=== PATIENT | male | born 1990 ===

== ENCOUNTER 2020-12-04 11:34 | Emergency (ER) | payer BC, OTHER ==
--- NOTE | 2020-12-04 11:43 | EDM.PDOC ---
ED HPI GENERAL MEDICAL PROBLEM - General Chief Complaint: ENT Problem Stated Complaint: [id number] BAD COLD Time Seen by Provider: 12/04/20 11:43 Source of Information: Reports: Patient, Family, RN, RN Notes Reviewed History Limitations: Reports: No Limitations - History of Present Illness INITIAL COMMENTS - FREE TEXT/NARRATIVE: Patient presents to ER accompanied by spouse with complaints of fever, sore throat, productive cough, muscle aches, congestion, runny nose. Muscle aches starting Thursday and other symptoms coming by Thursday. Patient denies known sick contacts and is fully vaccinated with, what he believes to be, Pfizer vaccine since June 2020. Pt denies nausea, vomiting, diarrhea, rash, chest pain, or shortness of breath. Onset: Sudden Onset Date: 12/01/20 Duration: Constant, Getting Worse Location: Reports: Generalized Quality: Reports: Ache Severity: Severe Improves with: Reports: None Worsens with: Reports: None Associated Symptoms: Reports: No Other Symptoms Treatments [employer]: Reports: Acetaminophen Generalized Pain Score (Numeric/FACES): 3 - Related Data Allergies Allergy/AdvReac Type Severity Reaction Status Date / Time No Known Allergies Allergy Verified 12/04/20 11:43 Home Meds: Home Meds . [No Known Home Meds] 12/04/20 [History] Past Medical History - Past Health History Medical/Surgical History: Denies Medical/Surgical History Social & Family History - Family History Family Medical History: No Pertinent Family History - Living Situation & Occupation Living situation: Reports: , with Spouse Occupation: Employed ED ROS GENERAL - Review of Systems Review Of Systems: Comprehensive ROS is negative, except as noted in HPI. ED EXAM, GENERAL - Physical Exam Exam: See Below Exam Limited By: No Limitations General Appearance: Alert, WD/WN, No Apparent Distress, Other (Acutely ill but non-toxic appearing) Eye Exam: Bilateral Eye: Normal Inspection Ears: Normal External Exam, Hearing Grossly Normal Nose: No Blood, Nasal Drainage (Clear, mild) Throat/Mouth: Normal Lips, Normal Teeth, Normal Gums, Normal Voice, No Airway Compromise, Other (red spots of erythema on soft pallet, uvula, and oropharnyx, no exudates, no swelling, some clear postnasal drip) Head: Atraumatic, Normocephalic Neck: Normal Inspection, Supple, Non-Tender, Full Range of Motion, Other (No nuchal rigidity). No: Lymphadenopathy (L), Lymphadenopathy (R) Respiratory/Chest: No Respiratory Distress, Lungs Clear, Normal Breath Sounds, No Accessory Muscle Use, Chest Non-Tender Cardiovascular: Regular Rate, Rhythm, No Murmur, Tachycardia GI/Abdominal: Normal Bowel Sounds, Soft, Non-Tender Back Exam: Normal Inspection Extremities: Normal Inspection, Non-Tender, Normal Capillary Refill. No: Joint Swelling Neurological: Alert, Oriented, CN II-XII Intact, Normal Cognition, Normal Gait, No Motor/Sensory Deficits Psychiatric: Normal Affect, Normal Mood Skin Exam: Warm, Intact, Normal Color, No Rash, Diaphoretic. No: Ecchymosis, Jaundice, Petechiae Course - Vital Signs Last Recorded V/S: Last Vital Signs Temp 96.6 F L 12/04/20 11:43 Pulse 121 H 12/04/20 11:43 Resp 16 12/04/20 11:43 BP 115/85 12/04/20 11:43 Pulse Ox 97 12/04/20 11:43 - Orders/Labs/Meds Orders: Active Orders 24 hr Category Date Time Status CULTURE STREP A CONFIRMATION [] Stat Lab 12/04/20 11:43 Results STREP SCRN A RAPID W CULT CONF [] Stat Lab 12/04/20 11:43 Results Labs: Laboratory Tests 12/04/20 12/04/20 12/04/20 Range/Units 11:43 13:44 13:44 WBC 5.1 (5.0-10.0) 10^3/uL RBC 5.15 (4.6-6.2) 10^6/uL Hgb 16.3 (14.0-18.0) g/dL Hct 47.6 (40.0-54.0) % MCV 92.4 (80-100) fL MCH 31.7 (27.0-34.0) pg MCHC 34.2 (33.0-35.0) g/dL Plt Count 202 (150-450) 10^3/uL Neut % (Auto) 74.1 (42.2-75.2) % Lymph % (Auto) 13.9 L (20.5-50.1) % Evans % (Auto) 11.4 H (2-8) % Eos % (Auto) 0.2 L (1.0-3.0) % Baso % (Auto) 0.4 (0.0-1.0) % C-Reactive Protein 2.6 H (0.0-0.9) mg/dL Influenza Type A RNA Negative (NEGATIVE) Influenza Type B RNA Negative (NEGATIVE) SARS-CoV-2 RNA (OTILIA) Negative (NEGATIVE) Rapid Strep: negative - Radiology Interpretation Free Text/Narrative:: XR Chest: no acute process per Rad. report. Departure - Departure Time of Disposition: 14:14 Disposition: Home, Self-Care 01 Condition: Good Clinical Impression: Viral URI with cough, Acute viral pharyngitis - Discharge Information *PRESCRIPTION DRUG MONITORING PROGRAM REVIEWED*: Not Applicable *COPY OF PRESCRIPTION DRUG MONITORING REPORT IN PATIENT DANAE: Not Applicable Instructions: Viral Illness, Adult Forms: ED Department Discharge Additional Instructions: Rx: Promethazine Codeine Syrup *Do not drive while under the influence of this medication. Rx: Prednisone 20mg Drink plenty of water, Pedialyte, or Gatorade. Use Tylenol and Ibuprofen as needed for fevers. Follow up in clinic if not improving as expected. Consider obtaining a second COVID test if you continue to have fevers in the next few days. Sepsis Event Note (ED) - Focused Exam Vital Signs: Vital Signs Temp Pulse Resp BP Pulse Ox 12/04/20 11:43 96.6 F L 121 H 16 115/85 97 - My Orders Last 24 Hours: My Active Orders 12/04/20 11:43 CULTURE STREP A CONFIRMATION [RM] Stat STREP SCRN A RAPID W CULT CONF [] Stat - Assessment/Plan Last 24 Hours: My Active Orders 12/04/20 11:43 CULTURE STREP A CONFIRMATION [RM] Stat STREP SCRN A RAPID W CULT CONF [] Stat
[2020-12-04 12:33] LABS: CORONAVIRUS COVID-19 NAA NEGATIVE (NEGATIVE)
--- NOTE | 2020-12-04 14:06 | CR ---
EXAMINATION: Chest 2V SEX: Male AGE: 30 years CLINICAL HISTORY: 30-year-old male with "productive cough" clinically. (Negative COVID test) INTERPRETATION: Negative exam. 1. Normal cardiac silhouette (cardiac size and configuration). Left-sided aortic arch. 2. No pulmonary vascular congestion, cephalization of flow, alveolar edema or dependent pleural fluid accumulation. 3. No suspicious lung nodule or mass lesion. No hilar or mediastinal lymphadenopathy. 4. No atelectasis/collapse. No alveolar infiltrate, air bronchograms, or peripheral "groundglass" interstitial lung densities. 5. No pneumothorax or pneumomediastinum. Normal midline tracheal bronchial airway. No free subdiaphragmatic air.
== END 2020-12-04 14:20 | disposition home or self-care (01) ==
LOC: DL.ED 11:34
DX: J02.8 Acute pharyngitis due to other specified organisms (principal); Z20.822 Contact with and (suspected) exposure to COVID-19
CPT/HCPCS: 0240U; 36415; 71046; 85025; 86140; 87081; 87430; 99283